=== PATIENT | female | born 1990 | race Caucasian/White ===

== ENCOUNTER → 2021-09-26 | Outpatient (CLI) | payer BC ==
[~2021-09-26] MED LIST: IBUP400 PO
== END | disposition home or self-care (01) ==
LOC: LAB SHORT 15:54
DX: A49.9 Bacterial infection, unspecified (principal)
CPT/HCPCS: 87070

== ENCOUNTER 2024-12-17 12:14 | Day surgery (SDC) | payer OTHER ==
[~2024-12-17] VITALS: Ht 165.1 cm; Wt 73.1 kg
[~2024-12-17 12:14] MED LIST changes: +ACET500 PO; +IBUP800 PO; +ONDA4ODT MM; +OXYC5 PO
[2024-12-17] MEDS ORDERED: Bupivacaine 0.25% Epi 1:200000 30 ML Vial ONE (13:44)
[2024-12-17] MEDS ORDERED: Dexamethasone Sod Phos 10 MG/ML 1ML VIAL IV ONE (14:00)
[2024-12-17] MEDS ORDERED: Ketorolac Tromethamine 30mg Vial IV ONE (14:00)
[2024-12-17 14:03] VITALS: BP 137/89
--- NOTE | 2024-12-17 14:03 | NUR ---
History, Chart, Medications and Allergies reviewed before start of procedure. Patient up to Ambulate independently. Gait steady. Pre-Op teaching done. Pt verbalizes understanding. Patient confirms NPO status and agrees with scheduled surgery. Patient reports completing Chlorhexadine shower X2 prior to admission to hospital. Surgical site prepped with 2% Chlorhexidine cloth wipe. Lungs clear T/O to Auscultation. Patient States Post-Procedure ride home has been arranged. Discharge instructions reviewed with patient. Patient verbalizes understanding.
[2024-12-17] MEDS ORDERED: Rocuronium Bromide 10 MG/ML 5ML Injection IV ONE (14:05)
[2024-12-17] MEDS ORDERED: FentaNYL Citrate 50 MCG/ML 2 ML Injection ONE (14:06)
[2024-12-17] MEDS ORDERED: HYDROmorphone HCl/Pf 1MG SYR ONE (14:06)
[2024-12-17] MEDS ORDERED: Sugammadex Sodium 200 MG/2ML SDV (100 MG/ML) ONE (14:20)
[2024-12-17] MEDS ORDERED: FentaNYL Citrate 50 MCG/ML 2 ML Injection IV PRN ×2 (15:15→15:20)
[2024-12-17] MEDS ORDERED: HYDROmorphone HCl/Pf 1MG SYR IV PRN ×2 (15:15→15:20)
[2024-12-17] MEDS ORDERED: Ondansetron HCl 2 MG / ML 2ML Vial IV PRN (15:20)
[2024-12-17] MEDS ORDERED: Ondansetron HCl 2 MG / ML 2ML Vial IV ONE (16:40)
[2024-12-17 17:00] VITALS: BP 111/65
[2024-12-17 17:05] VITALS: BP 122/75
[2024-12-17 17:10] VITALS: BP 120/67
[2024-12-17 17:15] VITALS: BP 120/74
[2024-12-17 17:30] VITALS: BP 120/78
[2024-12-17] MEDS ORDERED: Ondansetron HCl 2 MG / ML 2ML Vial ONE (17:46)
== END 2024-12-17 23:00 | disposition home or self-care (01) ==
LOC: ORSCMMR 12:14 → ORD 15:00 → ORSCMMR 23:00
PROVIDERS: Obstetrics & Gynecology
PROC: 0U514ZZ Destruction of Left Ovary, Percutaneous Endoscopic Approach (ICD-10-PCS; principal; 2024-12-17 15:00)
PROC: 0U5F4ZZ Destruction of Cul-de-sac, Percutaneous Endoscopic Approach (ICD-10-PCS; principal; 2024-12-17 15:00)
PROC: 8E0W4CZ Robotic Assisted Procedure of Trunk Region, Percutaneous Endoscopic Approach (ICD-10-PCS; principal; 2024-12-17 15:00)
DX: D27.1 Benign neoplasm of left ovary (principal); N80.352 Endometriosis of the left pelvic sidewall, unspecified depth; Z87.891 Personal history of nicotine dependence
CPT/HCPCS: 84702; 88305; A9270; J1100; J1171; J1790; J1885; J2405; J2704; J3010; J7120